=== PATIENT | male | born 1970 ===

== ENCOUNTER 2020-08-03 15:15 | Outpatient (REF) | payer OTHER, SELFPAY | END 2020-08-03 15:16 | disposition home or self-care (01) | LOC: HO.HAP 15:15 | PROVIDERS: Visit Provider Family Medicine | DX: Z46.1 Encounter for fitting and adjustment of hearing aid (principal) | CPT/HCPCS: V5160; V5261; V5264 ==

== ENCOUNTER 2020-08-22 16:00 | Outpatient (REF) | payer OTHER, SELFPAY | END 2020-08-22 16:01 | disposition home or self-care (01) | LOC: HO.HAP 16:00 | PROVIDERS: Visit Provider Family Medicine | DX: H90.3 Sensorineural hearing loss, bilateral (principal) | CPT/HCPCS: V5014 ==

== ENCOUNTER 2021-02-01 14:00 | Outpatient (REF) | payer OTHER, SELFPAY | END 2021-02-01 14:01 | disposition home or self-care (01) | LOC: HO.HAP 14:00 | PROVIDERS: Visit Provider Family Medicine | DX: Z13.89 Encounter for screening for other disorder (principal) ==